=== PATIENT | female | born 1945 | race Caucasian/White ===

== ENCOUNTER 2023-03-26 10:12 | Outpatient (REF) | payer MEDICARE, SELFPAY ==
[2023-03-26 10:56] LABS: MANUAL DIFF FLAG NO
[2023-03-26 11:07] LABS: Basophils Percent Auto 0.3 % (0-2); Eosinophils Absolute Auto 0.1 X10*3/uL (0.0-0.4); Eosinophils Percent Auto 0.9 % (0-4); Hematocrit 37.5 % (37.0-47.0); Hemoglobin 11.9 g/dl (12.0-16.0); Imm Gran Abs Auto 0.01 X10*3/uL (0.00-0.03); Imm Gran Pct Auto 0.1 % (0.0-0.4); Lymphocytes Absolute Auto 2.1 X10*3/uL (1.2-4.9); Lymphocytes Percent Auto 30.5 % (20-40); Mean Corpuscular HGB Conc 31.7 g/dl (31.0-35.0); Mean Corpuscular Hemoglobin 33.2 pg (27.0-33.0); Mean Corpuscular Volume 104.7 fL (80.0-98.0); Mean Platelet Volume 10.9 fL (9.4-12.3); Monocytes Absolute Auto 0.4 X10*3/uL (0.1-1.2); Monocytes Percent Auto 5.6 % (2-11); Neutrophils Absolute Auto 4.2 x10*3/uL (2.0-8.3); Neutrophils Percent Auto 62.6 % (45-73); Platelet Count 608 X10*3/uL (160-400); Red Blood Count 3.58 X10*6/uL (4.20-5.50); Red Cell Distribution Width 14.1 % (11.0-16.0); White Blood Count 6.7 X10*3/uL (4.8-10.8)
[2023-03-26 11:23] LABS: Anion Gap 12 (12-20); Blood Urea Nitrogen 15 mg/dL (9-16); Calcium 10.5 mg/dL (8.4-10.2); Carbon Dioxide 25 mmol/L (22-29); Chloride 108 mmol/L (96-108); Estimated Glomerular Filt Rate > 60; Glucose Random 102 mg/dL (60-115); Potassium 5.2 mmol/L (3.3-5.1); Sodium 140 mmol/L (135-145)
== END 2023-03-26 10:13 | disposition home or self-care (01) ==
LOC: HO.10HDL 10:12
PROVIDERS: Visit Provider Internal Medicine
DX: I10 Essential (primary) hypertension (principal); D75.839 Thrombocytosis, unspecified
CPT/HCPCS: 36415; 80048; 85025

== ENCOUNTER → 2023-07-15 12:33 | Outpatient (REF) | payer MEDICARE, SELFPAY | LOC: HO.CARD 12:33 | PROVIDERS: PCP Internal Medicine; Visit Provider Internal Medicine | DX: Z13.6 Encounter for screening for cardiovascular disorders (principal); I51.7 Cardiomegaly | CPT/HCPCS: 93306; 93356 ==

== ENCOUNTER → 2023-07-15 12:36 | Outpatient (BNV) | payer MEDICARE, SELFPAY | PROVIDERS: PCP Internal Medicine; Visit Provider Internal Medicine Cardiovascular Disease | DX: I36.1 Nonrheumatic tricuspid (valve) insufficiency (principal) | CPT/HCPCS: 93306 ==

== ENCOUNTER 2023-08-11 10:46 | Outpatient (REF) | payer MEDICARE, SELFPAY ==
[2023-08-11 11:17] LABS: MANUAL DIFF FLAG NO
[2023-08-11 11:56] LABS: Basophils Percent Auto 0.2 % (0-2); Eosinophils Percent Auto 0.4 % (0-4); Hematocrit 37.6 % (37.0-47.0); Hemoglobin 12.3 g/dl (12.0-16.0); Imm Gran Abs Auto 0.01 X10*3/uL (0.00-0.03); Imm Gran Pct Auto 0.2 % (0.0-0.4); Lymphocytes Absolute Auto 1.4 X10*3/uL (1.2-4.9); Lymphocytes Percent Auto 26.5 % (20-40); Mean Corpuscular HGB Conc 32.7 g/dl (31.0-35.0); Mean Corpuscular Hemoglobin 33.9 pg (27.0-33.0); Mean Corpuscular Volume 103.6 fL (80.0-98.0); Monocytes Absolute Auto 0.3 X10*3/uL (0.1-1.2); Monocytes Percent Auto 5.5 % (2-11); Neutrophils Absolute Auto 3.6 x10*3/uL (2.0-8.3); Neutrophils Percent Auto 67.2 % (45-73); Platelet Count 547 X10*3/uL (160-400); Red Blood Count 3.63 X10*6/uL (4.20-5.50); Red Cell Distribution Width 14.8 % (11.0-16.0); White Blood Count 5.3 X10*3/uL (4.8-10.8)
[2023-08-11 12:26] LABS: Anion Gap 12 (12-20); Blood Urea Nitrogen 15 mg/dL (9-16); Calcium 10.3 mg/dL (8.4-10.2); Carbon Dioxide 26 mmol/L (22-29); Chloride 106 mmol/L (96-108); Estimated Glomerular Filt Rate > 60; Glucose Random 106 mg/dL (60-115); Sodium 140 mmol/L (135-145)
== END 2023-08-11 10:47 | disposition home or self-care (01) ==
LOC: HO.LAB 10:46
PROVIDERS: PCP Internal Medicine; Visit Provider Internal Medicine
DX: I10 Essential (primary) hypertension (principal); D75.839 Thrombocytosis, unspecified
CPT/HCPCS: 36415; 80048; 85025

== ENCOUNTER 2023-12-03 11:55 | Outpatient (REF) | payer MEDICARE, SELFPAY ==
[2023-12-03 13:10] LABS: MANUAL DIFF FLAG NO
[2023-12-03 13:25] LABS: Basophils Percent Auto 0.2 % (0-2); Eosinophils Percent Auto 0.7 % (0-4); Hematocrit 35.3 % (37.0-47.0); Hemoglobin 11.7 g/dl (12.0-16.0); Imm Gran Abs Auto 0.02 X10*3/uL (0.00-0.03); Imm Gran Pct Auto 0.3 % (0.0-0.4); Lymphocytes Absolute Auto 1.8 X10*3/uL (1.2-4.9); Lymphocytes Percent Auto 30.8 % (20-40); Mean Corpuscular HGB Conc 33.1 g/dl (31.0-35.0); Mean Corpuscular Hemoglobin 34.8 pg (27.0-33.0); Mean Corpuscular Volume 105.1 fL (80.0-98.0); Mean Platelet Volume 10.6 fL (9.4-12.3); Monocytes Absolute Auto 0.5 X10*3/uL (0.1-1.2); Monocytes Percent Auto 7.6 % (2-11); Neutrophils Absolute Auto 3.6 x10*3/uL (2.0-8.3); Neutrophils Percent Auto 60.4 % (45-73); Platelet Count 645 X10*3/uL (160-400); Red Blood Count 3.36 X10*6/uL (4.20-5.50); Red Cell Distribution Width 16.3 % (11.0-16.0)
[2023-12-03 13:42] LABS: Alanine Aminotransferase 16 U/L (0-31); Albumin Level 4.5 g/dL (3.5-5.0); Alkaline Phosphatase 67 U/L (39-117); Anion Gap 13 (12-20); Aspartate Amino Transferase 14 U/L (5-31); Bilirubin Total 0.8 mg/dL (0.0-1.0); Blood Urea Nitrogen 19 mg/dL (9-16); Calcium 10.6 mg/dL (8.4-10.2); Carbon Dioxide 26 mmol/L (22-29); Chloride 106 mmol/L (96-108); Estimated Glomerular Filt Rate > 60; Glucose Random 98 mg/dL (60-115); Potassium 4.5 mmol/L (3.3-5.1); Sodium 140 mmol/L (135-145); Total Protein 7.7 g/dL (6.5-8.0)
[2023-12-03 14:10] LABS: Vitamin B12 226 pg/mL (200-900)
== END 2023-12-03 11:56 | disposition home or self-care (01) ==
LOC: HO.10HDL 11:55
PROVIDERS: Visit Provider Internal Medicine
DX: Z01.818 Encounter for other preprocedural examination (principal); I10 Essential (primary) hypertension; D75.839 Thrombocytosis, unspecified
CPT/HCPCS: 36415; 80053; 82607; 85025

== ENCOUNTER 2024-03-14 10:18 | Outpatient (REF) | payer MEDICARE, SELFPAY ==
[2024-03-14 11:08] LABS: MANUAL DIFF FLAG NO
[2024-03-14 11:26] LABS: Basophils Percent Auto 0.3 % (0-2); Eosinophils Absolute Auto 0.1 X10*3/uL (0.0-0.4); Eosinophils Percent Auto 1.2 % (0-4); Hematocrit 37.8 % (37.0-47.0); Hemoglobin 11.9 g/dl (12.0-16.0); Imm Gran Abs Auto 0.01 X10*3/uL (0.00-0.03); Imm Gran Pct Auto 0.2 % (0.0-0.4); Lymphocytes Absolute Auto 2.3 X10*3/uL (1.2-4.9); Lymphocytes Percent Auto 34.9 % (20-40); Mean Corpuscular HGB Conc 31.5 g/dl (31.0-35.0); Mean Corpuscular Hemoglobin 32.1 pg (27.0-33.0); Mean Corpuscular Volume 101.9 fL (80.0-98.0); Mean Platelet Volume 10.9 fL (9.4-12.3); Monocytes Absolute Auto 0.4 X10*3/uL (0.1-1.2); Monocytes Percent Auto 6.3 % (2-11); Neutrophils Absolute Auto 3.7 x10*3/uL (2.0-8.3); Neutrophils Percent Auto 57.1 % (45-73); Platelet Count 812 X10*3/uL (160-400); Red Blood Count 3.71 X10*6/uL (4.20-5.50); Red Cell Distribution Width 14.6 % (11.0-16.0); White Blood Count 6.5 X10*3/uL (4.8-10.8)
[2024-03-14 11:37] LABS: Alanine Aminotransferase 17 U/L (0-31); Albumin Level 4.3 g/dL (3.5-5.0); Alkaline Phosphatase 66 U/L (39-117); Anion Gap 13 (12-20); Aspartate Amino Transferase 13 U/L (5-31); Bilirubin Total 0.6 mg/dL (0.0-1.0); Blood Urea Nitrogen 17 mg/dL (9-16); Calcium 10.4 mg/dL (8.4-10.2); Carbon Dioxide 26 mmol/L (22-29); Chloride 106 mmol/L (96-108); Cholesterol 188 mg/dL (<200); Estimated Glomerular Filt Rate > 60; Glucose Fasting 107 mg/dL (60-99); HDL Cholesterol 57 mg/dL (>40); LDL Cholesterol Calculated 109 mg/dL (<100); Potassium 4.7 mmol/L (3.3-5.1); Sodium 140 mmol/L (135-145); Total Protein 7.7 g/dL (6.5-8.0); Triglycerides 110 mg/dL (<150)
[2024-03-14 11:56] LABS: Vitamin D 25-OH Total 34.1 ng/mL (>30)
== END 2024-03-14 10:19 | disposition home or self-care (01) ==
LOC: HO.10HDL 10:18
PROVIDERS: Visit Provider Internal Medicine
DX: I10 Essential (primary) hypertension (principal); M19.90 Unspecified osteoarthritis, unspecified site; D75.839 Thrombocytosis, unspecified
CPT/HCPCS: 36415; 80053; 80061; 82306; 85025

== ENCOUNTER 2024-08-22 10:04 | Outpatient (REF) | payer MEDICARE, SELFPAY ==
--- OUTSIDE RECORDS SUMMARY | 2024-08-22 11:12 | XMS_ITS | Clinical Summary ---
Author Organization 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 Phone Clifton Calderon MD Primary Care Provider [phone] Medications hydroxyurea (HYDREA) 500 mg capsule TAKE 1 CAPSULE (500 MG TOTAL) BY MOUTH DAILY 90 capsule 1 07/31/2024 Active Encounters Date Type Department Care Team Description 06/22/2024 Telephone [facility] Hematology Oncology [address] [place] [phone] Sailaja Lynn DO 06/20/2024 Telephone [facility] Hematology Oncology [address] [place] [phone] Sailaja Lynn DO Results from Last 3 Months Surgical History Surgery Date Site/Laterality Comments COLONOSCOPY 02/19/2014 PROCEDURE:COLONOSCOPY PARTIAL HIP ARTHROPLASTY PROCEDURE:PARTIAL HIP ARTHROPLASTY WISDOM TOOTH EXTRACTION PROCEDURE:WISDOM TOOTH EXTRACTION Medical History Medical History Date Comments Dermatitis DX:Dermatitis Eczema DX:Eczema HTN (hypertension) DX:HTN (hyper tension) Thrombocythemia, essential (CMS/HCC) DX:Thrombocythemia, essential (HCC) Thrombocytosis DX:Thrombocytosi s Osteoarthritis DX:Osteoarthriti s HLD (hyperlipidemia) DX:HLD (hyp erlipidemia) Family History Medical History Relation Name Comments Heart attack Father Hypertension Mother Leukemia Mother Relation Name Status Comments Father (Age 85) Mother (Age 80) Social History Tobacco Use Types Packs/Day Years Used Date Smoking Tobacco: Never Smokeless Tobacco: Never Alcohol Use Standard Drinks/Week Comments Yes 7 (1 standard drink = 0.6 oz pur e alcohol) Comments Unknown Sex and Gender Information Value Date Recorded Sex Assigned at Not on file Legal Sex Female 2:01 AM EST Gender Identity Not on file Sexual Orientation Not on file Obstetrics History Last Filed Vital Signs Vital Sign Reading Time Taken Comments Blood Pressure 165/58 04/19/2024 9:02 AM EDT Sitting Right arm Pulse 89 04/19/2024 9:02 AM EDT Temperature - - Respiratory Rate - - Oxygen Saturation - - Inhaled Oxygen Concentration - - Weight 66.1 kg (145 lb 12.8 oz) 04/19/2024 9:02 AM EDT Height 157.5 cm (5' 2 ) 04/19/2024 9:02 AM EDT Body Mass Index 26.67 04/19/2024 9:02 AM EDT Plan of Treatment Upcoming Encounters Date Type Department Care Team (Late st Contact Info) Description 10/18/2024 9:00 AM EDT Office Visit [facility] Hematology Oncology [address] [place] [phone] Sailaja Lynn, DO [address] [place] [address] Health Maintenance Due Date Last Done Comments DTaP,Tdap,and Td Vaccines (1 - Tdap) 1952 Pneumococcal Vaccine: 50+ Years (1 of 2 - PCV) 1963 RSV Immunization Patients 60+ Years Old (1 - 1-dose 75+ series) 2019 Zoster Vaccines (2 of 2) 06/10/2020 04/15/2020 Cholesterol Screening (Lipid Panel) 06/19/2022 Depression Screening 06/19/2022 Falls Risk Assessment 06/19/2022 Osteoporosis Screening (Bone Density Screening) 06/19/2022 Social Influencers of Health Screening 06/19/2022 Medicare Annual Wellness Visit 03/03/2023 03/03/2022 Influenza Vaccine (#1) 2024 3, 05/18/2022, 04/07/2021, Additional history exists Hypertension/CHF/CAD Annual BMP Blood Test 06/12/2025 06/12/2024 COVID-19 Vaccine Completed 03/29/2024, , 05/25/2022, Additional history exists HIB Vaccines Aged Out No longer eligi ble based on patient's age to complete this topic HPV Vaccines Aged Out No longer eligi ble based on patient's age to complete this topic Hepatitis A Vaccines Aged Out No long er eligible based on patient's age to complete this topic Hepatitis B Vaccines Aged Out No long er eligible based on patient's age to complete this topic IPV Vaccines Aged Out No longer eligi ble based on patient's age to complete this topic MMR Vaccines Aged Out No longer eligi ble based on patient's age to complete this topic Meningococcal ACWY Vaccine Aged Out N o longer eligible based on patient's age to complete this topic Meningococcal B Vacine Aged Out No lo nger eligible based on patient's age to complete this topic RSV Immunization Patients Under 20 months Aged Out No longer eligible based on patient's age to complete this topic Varicella Vaccines Aged Out No longer eligible based on patient's age to complete this topic Procedures Procedure Name Priority Date/Time Associated Diagnosis Comments CBC WITH AUTO DIFFERENTIAL Routine 06/12/2024 8:11 AM EST Thrombocythemia, essential (CMS/HCC) CBC AND DIFFERENTIAL Routine 06/12/2024 8:11 AM EST Thrombocythemia, essential (CMS/HCC) COMPREHENSIVE METABOLIC PANEL Routine 06/12/2024 8:11 AM EST Thrombocythemia, essential (CMS/HCC) from Last 3 Months Results * (ABNORMAL) CBC auto differential (06/12/2024 8:11 AM EST) WBC 4.9 4.8 - 10.8 K/mcL LAB HEMETOLOGY METHOD 06/12/2024 11:51 AM EST [facility] RBC 3.30(L) 3.80 - 4.80 M/mcL LAB HEMETOLOGY METHOD 06/12/2024 11:51 AM EST [facility] Hemoglobin 11.1(L) 11.5 - 16.0 g/dL LAB HEMETOLOGY METHOD 06/12/2024 11:51 AM [facility] Hematocrit 35.7 35.0 - 47.0 % LAB HEMETOLOGY METHOD 06/12/2024 11:51 AM [facility] MCV 109.8(H) 79.0 - 98.0 FL LAB HEMETOLOGY METHOD 06/12/2024 11:51 AM [facility] MCH 34.2(H) 27.0 - 32.0 pcg LAB HEMETOLOGY METHOD 06/12/2024 11:51 AM [facility] MCHC 31.1(L) 32.0 - 37.0 g/dL LAB HEMETOLOGY METHOD 06/12/2024 11:51 AM [facility] RDW 17.4(H) 11.0 - 15.0 % LAB HEMETOLOGY METHOD 06/12/2024 11:51 AM [facility] Platelets 534(H) 130 - 400 K/mcL LAB HEMETOLOGY METHOD 06/12/2024 11:51 AM [facility] MPV 10.9 7.0 - 11.0 FL LAB HEMETOLOGY METHOD 06/12/2024 11:51 AM [facility] NRBC 0.0 <1.0 % LAB HEMETOLOGY METHOD 06/12/2024 11:51 AM [facility] NRBC Absolute 0.00 <0.10 K/mcL LAB HEMETOLOGY METHOD 06/12/2024 11:51 AM [facility] Neutrophils Relative 55.1 % LAB HEMETOLOGY METHOD 06/12/2024 11:51 AM [facility] Lymphocytes Relative 36.6 % LAB HEMETOLOGY METHOD 06/12/2024 11:51 AM [facility] Monocytes Relative 6.5 % LAB HEMETOLOGY METHOD 06/12/2024 11:51 AM [facility] Eosinophils Relative 1.2 % LAB HEMETOLOGY METHOD 06/12/2024 11:51 AM EST [facility] Basophils Relative 0.2 % LAB HEMETOLOGY METHOD 06/12/2024 11:51 AM [facility] Immature Granulocytes Relative 0.4 % LAB HEMETOLOGY METHOD 06/12/2024 11:51 AM [facility] Neutrophils Absolute 2.69 1.50 - 7.00 K/mcL LAB HEMETOLOGY METHOD 06/12/2024 11:51 AM EST [facility] Lymphocytes Absolute 1.79 1.00 - 5.00 K/mcL LAB HEMETOLOGY METHOD 06/12/2024 11:51 AM [facility] Monocytes Absolute 0.32 0.20 - 1.00 K/mcL LAB HEMETOLOGY METHOD 06/12/2024 11:51 AM [facility] Eosinophils Absolute 0.06 0.00 - 0.50 K/mcL LAB HEMETOLOGY METHOD 06/12/2024 11:51 AM EST [facility] Basophils Absolute 0.01 0.00 - 0.20 K/mcL LAB HEMETOLOGY METHOD 06/12/2024 11:51 AM [facility] Immature Granulocytes Absolute 0.02 0.00 - 0.03 K/mcL LAB HEMETOLOGY METHOD 06/12/2024 11:51 AM EST [facility] Blood Venous blood specimen / Unknown Venipuncture / Unknown 06/12/2024 8:11 AM EST 06/12/2024 11:25 AM EST us Sailaja Lynn DO LAB BLOOD ORDERABLES Final Result [facility] [address] [place] [address], * Comprehensive metabolic panel (06/12/2024 8:11 AM EST) Sodium 141 133 - 145 mmol/L LAB CHEMISTRY METHOD 06/12/2024 11:58 AM [facility] Potassium 4.7 3.5 - 5.5 mmol/L LAB CHEMISTRY METHOD 06/12/2024 11:58 AM [facility] Chloride 110 96 - 110 mmol/L LAB CHEMISTRY METHOD 06/12/2024 11:58 AM [facility] CO2 27 21 - 32 mmol/L LAB CHEMISTRY METHOD 06/12/2024 11:58 AM [facility] Anion Gap 4 3 - 11 LAB CHEMISTRY METHOD 06/12/2024 11:58 AM [facility] Glucose 100 70 - 100 mg/dL LAB CHEMISTRY METHOD 06/12/2024 11:58 AM [facility] BUN 17 5 - 25 mg/dL LAB CHEMISTRY METHOD 06/12/2024 11:58 AM [facility] Creatinine 0.82 0.50 - 1.10 mg/dL LAB CHEMISTRY METHOD 06/12/2024 11:58 AM [facility] eGFR 72 >=60 mL/min/1. 73m2 LAB CHEMISTRY METHOD 06/12/2024 11:58 AM [facility] Comment:Calculation based on the??Chronic Kidney Disease Epidemiology Collaboration (CKD-EPI) equation refit??without adjustment for race. BUN/Creatinine Ratio 20.7 LAB CHEMISTRY METHOD 06/12/2024 11:58 AM [facility] Calcium 10.1 8.5 - 10.5 mg/dL LAB CHEMISTRY METHOD 06/12/2024 11:58 AM [facility] AST (SGOT) 14 10 - 42 unit/L LAB CHEMISTRY METHOD 06/12/2024 11:58 AM [facility] ALT (SGPT) 17 10 - 60 unit/L LAB CHEMISTRY METHOD 06/12/2024 11:58 AM [facility] Alkaline Phosphatase 75 42 - 121 unit/L LAB CHEMISTRY METHOD 06/12/2024 11:58 AM EST [facility] Total Protein 6.9 6.0 - 8.0 g/dL LAB CHEMISTRY METHOD 06/12/2024 11:58 AM EST [facility] Albumin 3.9 3.2 - 5.0 g/dL LAB CHEMISTRY METHOD 06/12/2024 11:58 AM EST [facility] Total Bilirubin 0.6 0.0 - 1.4 mg/dL LAB CHEMISTRY METHOD 06/12/2024 11:58 AM EST [facility] Blood Venous blood specimen / Unknown Venipuncture / Unknown 06/12/2024 8:11 AM EST 06/12/2024 11:26 AM EST us Sailaja Lynn DO LAB BLOOD ORDERABLES Final Result [facility] [address] [place] [address], from Last 3 Months Insurance MEDICARE 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
--- OUTSIDE RECORDS SUMMARY | 2024-08-22 11:13 | XMS_ITS | Clinical Summary ---
Author Organization [facility] Address [address] [place] [address] Care Team Providers Care Gas Welder Name Role Phone Dwight Bowser MD Primary Care Provider [phone] Allergies No known active allergies Medications Medication Sig Dispensed Refills Start Date End Date Status amLODIPine (NORVASC) tablet 10 mg Take 1 tablet (10 mg total) by mouth daily. 0 Active valsartan (DIOVAN) tablet 80 mg Take 1 tablet (80 mg total) by mouth daily. 0 Active vitamin D3 (VITAMIN D3) 25 MCG (1000 UT) tablet Take 1 tablet (1,000 Units total) by mouth daily. 0 Active aspirin EC 81 MG tablet Take 1 tablet (81 mg total) by mouth daily. 0 Active hydroxyurea (HYDREA) 500 MG capsule Take 1 capsule (500 mg total) by mouth daily 90 capsule 1 04/28/2024 Active Active Problems Problem Noted Date Diagnosed Date Thrombocythemia, essential 02/20/2020 Overview: The patient was evaluated by Dr. Strickland in March 2019 for platelet count of 608,000 with normal white count and hemoglobin. She did not have symptoms of hyperviscosity or splenomegaly on exam. 81 mg daily aspirin was recommended with follow-up in 6 months with molecular testing. Testing for Surya [id number] and BCR-ABL had both been reported negative when she saw Dr. Dillard in September 2019 with platelet count 765,000. No change in treatment was instituted. Thrombocytosis 11/21/2019 HTN (hypertension) 11/21/2019 Resolved Problems Problem Noted Date Diagnosed Date Resolved Date Encounter for monitoring of hydroxyurea therapy 10/20/2023 10/20/2023 Family History Medical History Relation Name Comments Heart attack Father Hypertension Mother Leukemia Mother Relation Name Status Comments Father (Age 85) Mother (Age 80) Social History Tobacco Use Types Packs/Day Years Used Date Smoking Tobacco: Never Smokeless Tobacco: Never Alcohol Use Standard Drinks/Week Comments Yes 7 (1 standard drink = 0.6 oz pure alcohol) daily glass of wine with dinner Sex and Gender Information Value Date Recorded Sex Assigned at Not on file Gender Identity Not on file Sexual Orientation Not on file Job Start Date Occupation Industry Not on file Not on file Not on file Last Filed Vital Signs Vital Sign Reading Time Taken Comments Blood Pressure 165/58 04/19/2024 9:02 AM EDT Pulse 89 04/19/2024 9:02 AM EDT Temperature 36.7 ??C (98 ??F) 04/19/2024 9:02 AM EDT Respiratory Rate - - Oxygen Saturation 99% 04/19/2024 9:02 AM EDT Inhaled Oxygen Concentration - - Weight 66.1 kg (145 lb 12.8 oz) 04/19/2024 9:02 AM EDT Height 157.5 cm (5' 2 ) 04/19/2024 9:02 AM EDT Body Mass Index 26.67 04/19/2024 9:02 AM EDT Plan of Treatment Health Maintenance Due Date Last Done Comments COVID-19 Vaccine (#1) 1950 Pneumococcal Vaccine (1 of 2 - PCV) 1950 Depression Screening 1956 Preventative Health Evaluation 1962 DTap / Tdap / Td (1 - Tdap) 1963 Shingrix-Zoster Vaccine (1 of 2) 1963 Fall Risk Assessment 2009 Osteoporosis Screening (DEXA Scan) 2009 RSV Adult > 60+ Yrs or Pregn ant (1 - 1-dose 75+ series) 2019 Influenza Vaccine (#1) 2024 Hepatitis B Vaccines Aged Out No long er eligible based on patient's age to complete this topic RSV Ped < 20 months Aged Out No longe r eligible based on patient's age to complete this topic Care Teams Gas Welder Relationship Specialty Start Date End Date Dwight Bowser MD [address] [place] [address] Dr [address] JUAN Hernandez [address] PCP - General Bird Raiser 10/28/22
[2024-08-22 11:26] LABS: MANUAL DIFF FLAG NO
[2024-08-22 11:33] LABS: Eosinophils Percent Auto 0.5 % (0-4); Hematocrit 33.9 % (37.0-47.0); Imm Gran Abs Auto 0.01 X10*3/uL (0.00-0.03); Imm Gran Pct Auto 0.3 % (0.0-0.4); Lymphocytes Absolute Auto 1.4 X10*3/uL (1.2-4.9); Lymphocytes Percent Auto 36.6 % (20-40); Mean Corpuscular HGB Conc 32.4 g/dl (31.0-35.0); Mean Corpuscular Hemoglobin 34.4 pg (27.0-33.0); Mean Corpuscular Volume 105.9 fL (80.0-98.0); Mean Platelet Volume 10.8 fL (9.4-12.3); Monocytes Absolute Auto 0.2 X10*3/uL (0.1-1.2); Monocytes Percent Auto 4.3 % (2-11); Neutrophils Absolute Auto 2.3 x10*3/uL (2.0-8.3); Neutrophils Percent Auto 58.3 % (45-73); Platelet Count 446 X10*3/uL (160-400); White Blood Count 3.9 X10*3/uL (4.8-10.8)
[2024-08-22 11:58] LABS: Alanine Aminotransferase 18 U/L (0-31); Albumin Level 4.3 g/dL (3.5-5.0); Alkaline Phosphatase 67 U/L (39-117); Anion Gap 9 (12-20); Aspartate Amino Transferase 19 U/L (5-31); Bilirubin Total 0.7 mg/dL (0.0-1.0); Blood Urea Nitrogen 19 mg/dL (9-16); Calcium 9.6 mg/dL (8.4-10.2); Carbon Dioxide 26 mmol/L (22-29); Chloride 108 mmol/L (96-108); Cholesterol 182 mg/dL (<200); Estimated Glomerular Filt Rate > 60; Glucose Fasting 96 mg/dL (60-99); HDL Cholesterol 51 mg/dL (>40); LDL Cholesterol Calculated 106 mg/dL (<100); Potassium 4.3 mmol/L (3.3-5.1); Sodium 139 mmol/L (135-145); Total Protein 7.5 g/dL (6.5-8.0); Triglycerides 125 mg/dL (<150); Vitamin D 25-OH Total 36.1 ng/mL (>30)
== END 2024-08-22 10:05 | disposition home or self-care (01) ==
LOC: HO.10HDL 10:04
PROVIDERS: Visit Provider Internal Medicine
DX: I10 Essential (primary) hypertension (principal); M81.0 Age-related osteoporosis without current pathological fracture; D75.839 Thrombocytosis, unspecified
CPT/HCPCS: 36415; 80053; 80061; 82306; 85025

== ENCOUNTER 2024-12-25 10:13 | Outpatient (AMB) | payer MEDICARE, SELFPAY ==
--- NOTE | 2024-12-25 10:15 | A.OFFPC_ITS ---
Vital Signs 12/25/24 10:19 12/25/24 10:40 Height 5 ft 2 in Weight 67.585 kg BMI 27.2 BP 160/94 H 140/70 H Pulse 97 Pulse Source Pulse Oximeter Temp 97.5 F Temp Source Temporal Artery Scan Pulse Oximetry (%) 98 Oxygen Delivery Method Room Air Intake Visit Reasons: Routine Bearing Grinder Required: No Accompanied by: Self / Same As Patient Allergies No Known Allergies Allergy (Verified 12/25/24 10:18) Medication List - Last Reconciled 12/25/24 by MAGNO Bear amlodipine 10 mg PO DAILY aspirin 81 mg PO DAILY cholecalciferol (vitamin D3) 50 mcg PO DAILY hydroxyurea PO valsartan 80 mg PO DAILY HPI HPI Comments History of Present Illness Details 79-year-old female with history of hyper tension, osteopenia, thrombocytosis presents to the office today for management of chronic conditions as well as to establish care. Hypertension-previously well-controlled. Initial blood pressure 160/94, repeat 140/70. Feels this is related to new office in provider. Compliant with valsartan 80 mg daily and amlodipine 10 mg daily. Thrombocytosis-following with Dr. Regan at [place]. On hydroxyurea. Last platelet count 446 Osteopenia-last DEXA scan 03/2024 with FRAX 16%. On vitamin-D Concerns: There is an itchy new rash on the upper chest. It is scaly. Reports it occasionally flares up and then improves. There is pruritus, worse at night. No pain or drainage [facility] Health maintenance: Continues with annual mammograms. Last mammo 03/2024 at [facility]. No personal history of breast cancer or abnormal mammogram but does desire to continue with scans Last DEXA scan 03/2024 at [facility] ROS: General: No fevers, malaise, unintentional weight loss Cardiovascular: No chest pain, palpitations, or leg edema Respiratory: No shortness of breath, wheezing, cough Neuro: No headaches, weakness, paresthesias Skin: see hpi EXAM: Constitutional - Awake and Alert, No apparent distress Eyes - PERRL Cardiovascular - S1S2, RRR, No edema Respiratory - Normal lung expansion, Normal respiratory effort, No respiratory distress, CTA bilaterally Extremities - no calf tenderness bilaterally, no swelling Skin - Warm/Dry. Mildly erythematous papular scaling rash on the mid upper chest Neurological - Alert & oriented x3 Psychological - Appropriate affect PFSH Medical History (Updated 12/25/24 @ 10:50 by MAGNO Bear) Thrombocytosis Vitamin D deficiency Osteopenia Hypertension Surgical History (Updated 12/25/24 @ 10:26 by MAGNO Bear) Status post total hip replacement, right S/P cataract surgery Questionnaire PHQ-9 Over the last 2 weeks, how often have you been bothered by any of the following problems? 1. Little interest or pleasure in doing things: not at all 2. Feeling down, depressed, or hopeless: not at all 3. Trouble falling or staying asleep, or sleeping too much: several days 4. Feeling tired or having little energy: several days 5. Poor appetite or overeating: not at all 6. Feeling bad about yourself - or that you are a failure or have let yourself or your family down: not at all 7. Trouble concentrating on things, such as reading the newspaper or watching television: not at all 8. Moving or speaking so slowly that other people could have noticed. Or the opposite - being so fidgety or restless that you have been moving around a lot more than usual: not at all 9. Thoughts that you would be better off or of hurting yourself in some way: not at all Total score: 2 Source: Developed by Drs. Toribio Marti, Kortney Oglesby, Julio Cesar Mcdonald and colleagues, with an educational mary from [employer]. Thrive Questionnaire Date Thrive assessed: 12/25/24 I am a: Patient What is your living situation today?: I have a steady place to live Within the past 12 months, did the food you bought not last and you didn't have the money to get more?: Never true Within the past 12 months, did you worry whether your food would run out before you got money to buy more?: Never true Do you have trouble paying for medicines?: No Do you have trouble getting transportation to medical appointments?: No Do you have trouble paying your heating and electricity bill?: No Do you have trouble taking care of your child, family member or friend?: No Do you have trouble with day-to-day activities such as bathing, preparing meals, shopping, managing finances, etc.?: No Are you currently unemployed and looking for a job?: No Are you interested in more education?: No Please select the resources that you would like help with: None THRIVE Score: 0 LALIT-7 AMB Questionnaire LALIT-7 Date LALIT - 7 assessed: 12/25/24 Feeling nervous, anxious, or on edge: 0 = Not at all Not being able to stop or control worryin = Not at all Worrying too much about different things: 0 = Not at all Trouble relaxin = Not at all Being so restless that it is hard to sit still: 0 = Not at all Becoming easily annoyed or irritable: 0 = Not at all Feeling afraid as if something awful might happen: 0 = Not at all Total LALIT-7 score (0-4 normal; 5-9 mild; 10-14 moderate; 15-21 severe): 0 Source: Developed by Drs. Toribio Marti, Kortney Oglesby, Julio Cesar Mcdonald and colleagues, with an educational mary from [employer]. Physical exam (Primary Care) Vital Signs: Last Vital Signs Temp 97.5 F 12/25/24 10:19 Pulse 97 12/25/24 10:19 BP 140/70 H 12/25/24 10:40 Pulse Ox 98 12/25/24 10:19 Oxygen Delivery Method Room Air 12/25/24 10:19 BMI result Body Mass Index 27.2 Coding Level of Care Code New Pt Level 4 (35729) Complex EM visit Add On G2211 Diagnoses Hypertension I10 Osteopenia M85.80 Vitamin D deficiency E55.9 Thrombocytosis D75.839 Tinea versicolor B36.0 Assessment & Plan Assessment & Plan (1) Hypertension: Code(s): I10 - Essential (primary) hypertension Category: Medical Plan: 140/70. She is not interested in medication changes at this time. Blood pressures have previously been well-controlled, feels this is related to new office/staff. Continue on amlodipine 10 mg daily and valsartan 80 mg daily. Recommend occasionally check her blood pressures with goal less than 140/90 (2) Osteopenia: Code(s): M85.80 - Other specified disorders of bone density and structure, unspecified site Category: Medical Plan: FRAX 16%. Continue following for DEXA scans every other year. Continue on vitamin-D. Recommend weight-bearing exercise. (3) Vitamin D deficiency: Code(s): E55.9 - Vitamin D deficiency, unspecified Category: Medical Plan: Vitamin-D level ordered. Continue supplementation (4) Thrombocytosis: Code(s): D75.839 - Thrombocytosis, unspecified Category: Medical Plan: Stable. Continue hydroxyurea. Continue following with [id number]. Records to be requested (5) Tinea versicolor: Code(s): B36.0 - Pityriasis versicolor Category: Medical Plan: Ketoconazole shampoo Plan Follow-up in the office in 4 months. Labs to be completed several days prior to visit. Orders: Orders Basic Metabolic Panel 4 Months D7.839 - Thrombocytosis, unspecified, E55.9 - Vitamin D deficiency, unspecified, I10 - Essential (primary) hypertension, M85.80 - Other specified disorders of bone density and structure, unspecified site Complete Blood Count Auto Diff 4 Months D75.839 - Thrombocytosis, unspecified, E55.9 - Vitamin D deficiency, unspecified, I10 - Essential (primary) hypertension, M85.80 - Other specified disorders of bone density and structure, unspecified site Vitamin D 25-OH Total 4 Months D75.839 - Thrombocytosis, unspecified, E55.9 - Vitamin D deficiency, unspecified, I10 - Essential (primary) hypertension, M85.80 - Other specified disorders of bone density and structure, unspecified site MM tomosynthesis screening BI Today Z12.31 - Encounter for screening mammogram for malignant neoplasm of breast Medications: New ketoconazole 2% Apply to damp chest, lather, and leave on 5 minutes before rinsing. Repeat daily x 3 days. May repeat in 2 weeks if needed; 120 mL 0RF
[2024-12-25 10:19] VITALS: BP 160/94; PULSE 97; TEMP 36.4; O2SAT 98; BMI 27.2
[2024-12-25 10:40] VITALS: BP 140/70
--- OUTSIDE RECORDS SUMMARY | 2024-12-25 11:22 | XMS_ITS | Clinical Summary ---
Author Organization [facility] Address [address] [place] [address] Phone Care Team Providers Care Web User Experience Strategist Name Role Phone Clifton Calderon MD Primary Care Provider +1- [phone] Allergies No known active allergies Medications amLODIPine (NORVASC) 10 mg tablet Take 1 tablet (10 mg total) by mouth 1 (one) time each day. Active aspirin 81 mg EC tablet Take 1 tablet (81 mg total) by mouth 1 (one) time each day. Active cholecalciferol (VITAMIN D-3) 25 mcg (1,000 unit) tablet Take 1 tablet (1,000 Units total) by mouth. Active valsartan (DIOVAN) 80 mg tablet Take 1 tablet (80 mg total) by mouth 1 (one) time each day. Active hydroxyurea (HYDREA) 500 mg capsule Take two tablets by mouth twice a week and one tablet the remainder of the days. Take at the same time each day. 108 capsule Active Active Problems Problem Noted Date Diagnosed Date Essential thrombocytosis (CMS/HCC V24, CMS/HCC V 28) 10/18/2024 Encounters Date Type Department Care Team Description 10/30/2024 Telephone [facility] Hematology Oncology [address] [place] [phone] Sailaja Lynn DO 10/18/2024 9:40 AM EDT Lab Draw Station - [address] [address] Essential thrombocytosis (CMS/HCC V24, [facility] V28) 10/18/2024 9:00 AM EDT Office Visit [facility] Hematology Oncology [address] [place] [address] Sailaja Lynn DO Essential thrombocytosis ([facility] V24, [facility] V28) (Primary Dx) from Last 3 Months Surgical History Surgery Date Site/Laterality Comments COLONOSCOPY 02/19/2014 PROCEDURE:COLONOSCOPY PARTIAL HIP ARTHROPLASTY PROCEDURE:PARTIAL HIP ARTHROPLASTY WISDOM TOOTH EXTRACTION PROCEDURE:WISDOM TOOTH EXTRACTION Medical History Medical History Date Comments Dermatitis DX:Dermatitis Eczema DX:Eczema HTN (hypertension) DX:HTN (hyper tension) Thrombocythemia, essential ( [facility] V24, [facility] V28) DX:Thrombocythemia, essentia l (HCC) Thrombocytosis DX:Thrombocytosi s Osteoarthritis DX:Osteoarthriti s [...] Sign Reading Time Taken Comments Blood Pressure 155/55 10/18/2024 9:03 AM EDT Pulse 97 10/18/2024 9:03 AM EDT Temperature 36.7 ??C (98 ??F) 10/18/2024 9:03 AM EDT Respiratory Rate - - Oxygen Saturation 100% 10/18/2024 9:03 AM EDT Inhaled Oxygen Concentration - - Weight 66.7 kg (147 lb) 10/18/2024 9:03 AM EDT Height 157.5 cm (5' 2 ) 10/18/2024 9:03 AM EDT Body Mass Index 26.89 10/18/2024 9:03 AM EDT Plan of Treatment Upcoming Encounters Date Type Department Care Team (Late st Contact Info) Description 04/18/2025 9:00 AM EDT Office Visit [facility] Hematology Oncology [address] [place] [phone] Sailaja Lynn DO [address] [place] [address] Health Maintenance Due Date Last Done Comments DTaP,Tdap,and Td Vaccines (1 - Tdap) 1964 Pneumococcal Vaccine: 50+ Years (1 of 2 - PCV) 1964 RSV Immunization Adult Patients (1 - 1-dose 75+ series) 2019 Zoster Vaccines (2 of 2) 06/10/2020 04/15/2020 Cholesterol Screening (Lipid Panel) 06/19/2022 Depression Screening 06/19/2022 Falls Risk Assessment 06/19/2022 Osteoporosis Screening (Bone Density Screening) 06/19/2022 Social Influencers of Health Screening 06/19/2022 Medicare Annual Wellness Visit 03/03/2023 03/03/2022 COVID-19 Vaccine (8 - Pfizer risk 2023- season) 2024 03/29/2024, 07/09/2023, 05/25/2022, Additional history exists Influenza Vaccine (Season Ended) 2025 03/26/2023, 05/18/2022, 04/07/2021, Additional history exists Hypertension/CHF/CAD Annual BMP Blood Test 10/18/2025 10/18/2024, 09/01/2024, 06/12/2024 HIB Vaccines Aged Out No longer eligi [...] age to complete this topic Meningococcal B Vaccine Aged Out No l onger eligible based on patient's age to complete this topic RSV Immunization Patients Under 20 months Aged Out No longer eligible based on patient's age to complete this topic Varicella Vaccines Aged Out No longer eligible based on patient's age to complete this topic Procedures Procedure Name Priority Date/Time Associated Diagnosis Comments CBC WITH AUTO DIFFERENTIAL Routine 10/18/2024 9:37 AM EDT Essential thrombocytosis ([facility] V24, [facility] V28) COMPREHENSIVE METABOLIC PANEL Routine 10/18/2024 9:37 AM EDT Essential thrombocytosis ([facility] V24, [facility] V28) CBC AND DIFFERENTIAL Routine 10/18/2024 9:37 AM EDT Essential thrombocytosis ([facility] V24, [facility] V28) from Last 3 Months Results * (ABNORMAL) CBC auto differential (10/18/2024 9:37 AM EDT) WBC 5.6 4.8 - 10.8 K/mcL LAB HEMETOLOGY METHOD 10/18/2024 12:03 PM [facility] RBC 3.10(L) 3.80 - 4.80 M/mcL LAB HEMETOLOGY METHOD 10/18/2024 12:03 PM [facility] Hemoglobin 11.4(L) 11.5 - 16.0 g/dL LAB HEMETOLOGY METHOD 10/18/2024 12:03 PM [facility] Hematocrit 36.1 35.0 - 47.0 % LAB HEMETOLOGY METHOD 10/18/2024 12:03 PM [facility] MCV 115.0(H) 79.0 - 98.0 FL LAB HEMETOLOGY METHOD 10/18/2024 12:03 PM [facility] MCH 36.3(H) 27.0 - 32.0 pcg LAB HEMETOLOGY METHOD 10/18/2024 12:03 PM [facility] MCHC 31.6(L) 32.0 - 37.0 g/dL LAB HEMETOLOGY METHOD 10/18/2024 12:03 PM [facility] RDW 16.1(H) 11.0 - 15.0 % LAB HEMETOLOGY METHOD 10/18/2024 12:03 PM [facility] Platelets 584(H) 130 - 400 K/mcL LAB HEMETOLOGY METHOD 10/18/2024 12:03 PM [facility] MPV 11.3(H) 7.0 - 11.0 FL LAB HEMETOLOGY METHOD 10/18/2024 12:03 PM [facility] NRBC 0.0 <1.0 % LAB HEMETOLOGY METHOD 10/18/2024 12:03 PM [facility] NRBC Absolute 0.00 <0.10 K/mcL LAB HEMETOLOGY METHOD 10/18/2024 12:03 PM [facility] Neutrophils Relative 59.3 % LAB HEMETOLOGY METHOD 10/18/2024 12:03 PM [facility] Lymphocytes Relative 34.9 % LAB HEMETOLOGY METHOD 10/18/2024 12:03 PM [facility] Monocytes Relative 4.5 % LAB HEMETOLOGY METHOD 10/18/2024 12:03 PM [facility] Eosinophils Relative 0.7 % LAB HEMETOLOGY METHOD 10/18/2024 12:03 PM [facility] Basophils Relative 0.2 % LAB HEMETOLOGY METHOD 10/18/2024 12:03 PM [facility] Immature Granulocytes Relative 0.4 % LAB HEMETOLOGY METHOD 10/18/2024 12:03 PM [facility] Neutrophils Absolute 3.33 1.50 - 7.00 K/mcL LAB HEMETOLOGY METHOD 10/18/2024 12:03 PM [facility] Lymphocytes Absolute 1.96 1.00 - 5.00 K/mcL LAB HEMETOLOGY METHOD 10/18/2024 12:03 PM EDT [facility] Monocytes Absolute 0.25 0.20 - 1.00 K/[facility] LAB HEMETOLOGY METHOD 10/18/2024 12:03 PM EDT [facility] Eosinophils Absolute 0.04 0.00 - 0.50 K/[facility] LAB HEMETOLOGY METHOD 10/18/2024 12:03 PM EDT [facility] Basophils Absolute 0.01 0.00 - 0.20 K/[facility] LAB HEMETOLOGY METHOD 10/18/2024 12:03 PM EDT [facility] Immature Granulocytes Absolute 0.02 0.00 - 0.03 K/[facility] LAB HEMETOLOGY METHOD 10/18/2024 12:03 PM [facility] Blood Venous blood specimen / Unknown Venipuncture / Unknown 10/18/2024 9:37 AM EDT 10/18/2024 11:31 AM EDT us Sailaja Lynn DO LAB BLOOD ORDERABLES Final Result [facility] [address] [place] [address], * (ABNORMAL) Comprehensive metabolic panel (10/18/2024 9:37 AM EDT) Sodium 136 133 - 145 mmol/L LAB CHEMISTRY METHOD 10/18/2024 12:22 PM EDT [facility] Potassium 4.4 3.5 - 5.5 mmol/L LAB CHEMISTRY METHOD 10/18/2024 12:22 PM [facility] Chloride 106 96 - 110 mmol/L LAB CHEMISTRY METHOD 10/18/2024 12:22 PM [facility] CO2 27 21 - 32 mmol/L LAB CHEMISTRY METHOD 10/18/2024 12:22 PM [facility] Anion Gap 3 3 - 11 LAB CHEMISTRY METHOD 10/18/2024 12:22 PM [facility] Glucose 107(H) 70 - 100 mg/dL LAB CHEMISTRY METHOD 10/18/2024 12:22 PM [facility] BUN 22 5 - 25 mg/dL LAB CHEMISTRY METHOD 10/18/2024 12:22 PM [facility] Creatinine 0.88 0.50 - 1.10 mg/dL LAB CHEMISTRY METHOD 10/18/2024 12:22 PM [facility] eGFR 67 >=60 mL/min/1. 73m2 LAB CHEMISTRY METHOD 10/18/2024 12:22 PM [facility] Comment:Calculation based on the??Chronic Kidney Disease Epidemiology Collaboration (CKD-EPI) equation refit??without adjustment for race. BUN/Creatinine Ratio 25.0 LAB CHEMISTRY METHOD 10/18/2024 12:22 PM [facility] Calcium 10.4 8.5 - 10.5 mg/dL LAB CHEMISTRY METHOD 10/18/2024 12:22 PM [facility] AST (SGOT) 9(L) 10 - 42 unit/L LAB CHEMISTRY METHOD 10/18/2024 12:22 [facility] ALT (SGPT) 21 10 - 60 unit/L LAB CHEMISTRY METHOD 10/18/2024 12:22 PM [facility] Alkaline Phosphatase 75 42 - 121 unit/L LAB CHEMISTRY METHOD 10/18/2024 12:22 PM [facility] Total Protein 7.6 6.0 - 8.0 g/dL LAB CHEMISTRY METHOD 10/18/2024 12:22 PM [facility] Albumin 4.2 3.2 - 5.0 g/dL LAB CHEMISTRY METHOD 10/18/2024 12:22 PM [facility] Total Bilirubin 0.6 0.0 - 1.4 mg/dL LAB CHEMISTRY METHOD 10/18/2024 12:22 PM EDT [facility] Blood Venous blood specimen / Unknown Venipuncture / Unknown 10/18/2024 9:37 AM EDT 10/18/2024 11:31 AM EDT us Sailaja Judith Lynn DO LAB BLOOD ORDERABLES Final Result [facility] ([facility]) [facility] [address] [place] [address], [place] [phone] from Last 3 Months Insurance MEDICARE [facility] Care Teams Web User Experience Strategist Relationship Specialty Start Date End Date Clifton Calderon MD [address] [facility] [address] [place] [address] PCP - General Internal Medicine 05/08/24
== END 2024-12-25 10:40 | disposition home or self-care (01) ==
LOC: HO.HMCHD 10:13
PROVIDERS: PCP Internal Medicine; Visit Provider Physician Assistant
DX: I10 Essential (primary) hypertension (principal); M85.80 Other specified disorders of bone density and structure, unspecified site; E55.9 Vitamin D deficiency, unspecified; D75.839 Thrombocytosis, unspecified; B36.0 Pityriasis versicolor

== ENCOUNTER → 2024-12-25 10:13 | Outpatient (BNVA) | payer MEDICARE, SELFPAY | PROVIDERS: PCP Internal Medicine; Visit Provider Physician Assistant | DX: I10 Essential (primary) hypertension (principal); M85.80 Other specified disorders of bone density and structure, unspecified site; E55.9 Vitamin D deficiency, unspecified; D75.839 Thrombocytosis, unspecified; B36.0 Pityriasis versicolor; Z79.899 Other long term (current) drug therapy | CPT/HCPCS: 96127; 99202 ==

== ENCOUNTER 2025-04-27 10:50 | Outpatient (REF) | payer MEDICARE, SELFPAY ==
[2025-04-27 13:15] LABS: MANUAL DIFF FLAG NO
--- OUTSIDE RECORDS SUMMARY | 2025-04-27 13:24 | XMS_ITS | Clinical Summary ---
Author Organization [facility] Address [address] [place] [address] Phone Care Team Providers Care Police Captain Name Role Phone Clifton Calderon MD Primary Care Provider +1- [phone] Allergies No known active allergies Medications amLODIPine [...] Encounters Date Type Department Care Team Description 04/18/2025 Telephone [facility] Hematology Oncology [address] [place] [phone] Sailaja Lynn DO 02/02/2025 Telephone [facility] Hematology Oncology [address] [place] [phone] Sailaja Lynn DO from Last 3 Months Surgical History Surgery Date Site/Laterality Comments COLONOSCOPY 02/19/2014 PROCEDURE:COLONOSCOPY PARTIAL HIP ARTHROPLASTY PROCEDURE:PARTIAL HIP ARTHROPLASTY WISDOM TOOTH EXTRACTION PROCEDURE:WISDOM TOOTH EXTRACTION Medical History Medical History Date Comments Dermatitis DX:Dermatitis Eczema DX:Eczema HTN (hypertension) DX:HTN (hyper tension) Thrombocythemia, essential ( [facility] V24, [facility] V28) DX:Thrombocythemia, essentia l (HCC) Thrombocytosis DX:Thrombocytosi [...] 97 10/18/2024 9:03 AM EDT Temperature 36.7 C (98 F) 10/18/2024 9:03 AM EDT Respiratory Rate - - Oxygen Saturation 100% 10/18/2024 9:03 AM EDT Inhaled Oxygen Concentration - - Weight 66.7 kg (147 lb) 10/18/2024 9:03 AM EDT Height 157.5 cm (5' 2 ) 10/18/2024 9:03 AM EDT Body Mass Index 26.89 10/18/2024 9:03 AM EDT Plan of Treatment Upcoming Encounters Date Type Department Care Team (Late st Contact Info) Description 05/09/2025 9:15 AM EDT Office Visit [facility] Hematology Oncology [address] [place] [phone] Sailaja Lynn DO [address] [place] [address] Health Maintenance Due Date Last Done Comments DTaP,Tdap,and Td Vaccines (1 - Tdap) 1964 Pneumococcal Vaccine: 50+ Years (1 of 1 - PCV) 1994 RSV Immunization Adult Patients (1 - 1-dose 75+ series) 2019 Zoster Vaccines (2 of 2) 06/10/2020 04/15/2020 Cholesterol Screening (Lipid Panel) 06/19/2022 Falls Risk Assessment 06/19/2022 Medicare Annual Wellness Visit 06/19/2022 Osteoporosis Screening (Bone Density Screening) 06/19/2022 Social Influencers of Health Screening 06/19/2022 Depression Screening 07/12/2024 COVID-19 Vaccine (8 - Pfizer risk season) 2025 03/29/2024, 07/09/2023, 05/25/2022, Additional history exists Influenza Vaccine (#1) 2025 , 05/18/2022, 04/07/2021, Additional history exists Hypertension/CHF/CAD Annual BMP Blood Test 04/13/2026 04/13/2025, 01/16/2025, 10/18/2024, Additional history exists HIB Vaccines Aged Out [...] Diagnosis Comments CBC WITH AUTO DIFFERENTIAL Routine 04/13/2025 8:30 AM EDT Essential thrombocytosis ([facility]/HCC V24, [facility] V28) COMPREHENSIVE METABOLIC PANEL Routine 04/13/2025 8:30 AM EDT Essential thrombocytosis ([facility]/HCC V24, CMS/HCC V28) CBC AND DIFFERENTIAL Routine 04/13/2025 8:30 AM EDT Essential thrombocytosis ([facility]/HCC V24, CMS/HCC V28) from Last 3 Months Results * (ABNORMAL) CBC auto differential (04/13/2025 8:30 AM EDT) [facility] WBC 5.0 4.8 - 10.8 K/mcL LAB HEMETOLOGY METHOD 04/13/2025 11:[address] [facility] RBC 3.10(L) 3.80 - 4.80 M/mcL LAB HEMETOLOGY METHOD 04/13/2025 11:[address] [facility] Hemoglobin 10.6(L) 11.5 - 16.0 g/dL LAB HEMETOLOGY METHOD 04/13/2025 11:[address] [facility] Hematocrit 34.9(L) 35.0 - 47.0 % LAB HEMETOLOGY METHOD 04/13/2025 11:[address] [facility] MCV 112.2(H) 79.0 - 98.0 FL LAB HEMETOLOGY METHOD 04/13/2025 11:[address] [facility] MCH 34.1(H) 27.0 - 32.0 pcg LAB HEMETOLOGY METHOD 04/13/2025 11:[address] [facility] MCHC 30.4(L) 32.0 - 37.0 g/dL LAB HEMETOLOGY METHOD 04/13/2025 11:[address] [facility] RDW 17.5(H) 11.0 - 15.0 % LAB HEMETOLOGY METHOD 04/13/2025 11:[address] [facility] Platelets 611(H) 130 - 400 K/mcL LAB HEMETOLOGY METHOD 04/13/2025 11:[address] [facility] MPV 11.2(H) 7.0 - 11.0 FL LAB HEMETOLOGY METHOD 04/13/2025 11:[address] [facility] NRBC 0.0 <1.0 % LAB HEMETOLOGY METHOD 04/13/2025 11:[address] [facility] NRBC Absolute 0.00 <0.10 K/mcL LAB HEMETOLOGY METHOD 04/13/2025 11:[address] [facility] Neutrophils Relative 46.1 % LAB HEMETOLOGY METHOD 04/13/2025 11:[address] [facility] Lymphocytes Relative 45.5 % LAB HEMETOLOGY METHOD 04/13/2025 11:[address] [facility] Monocytes Relative 7.2 % LAB HEMETOLOGY METHOD 04/13/2025 11:[address] [facility] Eosinophils Relative 0.8 % LAB HEMETOLOGY METHOD 04/13/2025 11:[address] [facility] Basophils Relative 0.2 % LAB HEMETOLOGY METHOD 04/13/2025 11:[address] [facility] Immature Granulocytes Relative 0.2 % LAB HEMETOLOGY METHOD 04/13/2025 11:[address] [facility] Neutrophils Absolute 2.31 1.50 - 7.00 K/mcL LAB HEMETOLOGY METHOD 04/13/2025 11:[address] [facility] Lymphocytes Absolute 2.28 1.00 - 5.00 K/mcL LAB HEMETOLOGY METHOD 04/13/2025 11:[address] [facility] Monocytes Absolute 0.36 0.20 - 1.00 K/mcL LAB HEMETOLOGY METHOD 04/13/2025 11:[address] [facility] Eosinophils Absolute 0.04 0.00 - 0.50 K/mcL LAB HEMETOLOGY METHOD 04/13/2025 11:41 AM EDT [facility] Basophils Absolute 0.01 0.00 - 0.20 K/[facility] LAB HEMETOLOGY METHOD 04/13/2025 11:41 AM EDT [facility] Immature Granulocytes Absolute 0.01 0.00 - 0.03 K/[facility] LAB HEMETOLOGY METHOD 04/13/2025 11:41 AM EDT [facility] Blood Venous blood specimen / Unknown Venipuncture / Unknown 04/13/2025 8:30 AM EDT 04/13/2025 11:30 AM EDT Sailaja Lynn DO LAB BLOOD ORDERABLES Final Result [facility] [address] [place] [address], * (ABNORMAL) Comprehensive metabolic panel (04/13/2025 8:30 AM EDT) Sodium 141 133 - 145 mmol/L LAB CHEMISTRY METHOD 04/13/2025 2:[address] [facility] Potassium 5.0 3.5 - 5.5 mmol/L LAB CHEMISTRY METHOD 04/13/2025 2:[address] [facility] Chloride 108 96 - 110 mmol/L LAB CHEMISTRY METHOD 04/13/2025 2:[address] [facility] CO2 24 21 - 32 mmol/L LAB CHEMISTRY METHOD 04/13/2025 2:[address] [facility] Anion Gap 9 3 - 11 LAB CHEMISTRY METHOD 04/13/2025 2:[address] [facility] Glucose 106(H) 70 - 100 mg/dL LAB CHEMISTRY METHOD 04/13/2025 2:[address] [facility] BUN 19 5 - 25 mg/dL LAB CHEMISTRY METHOD 04/13/2025 2:[address] [facility] Creatinine 0.73 0.50 - 1.10 mg/dL LAB CHEMISTRY METHOD 04/13/2025 2:[address] [facility] eGFR 83 >=60 mL/min/1. 73m2 LAB CHEMISTRY METHOD 04/13/2025 2:[address] [facility] Comment:Calculation based on the Chronic Kidney Disease Epidemiology Collaboration (CKD-EPI) equation refit without adjustment for race. BUN/Creatinine Ratio 26.0 LAB CHEMISTRY METHOD 04/13/2025 2:[address] [facility] Calcium 9.8 8.5 - 10.5 mg/dL LAB CHEMISTRY METHOD 04/13/2025 2:[address] [facility] AST (SGOT) 14 10 - 42 unit/L LAB CHEMISTRY METHOD 04/13/2025 2:[address] [facility] ALT (SGPT) 32 10 - 60 unit/L LAB CHEMISTRY METHOD 04/13/2025 2:[address] [facility] Alkaline Phosphatase 80 42 - 121 unit/L LAB CHEMISTRY METHOD 04/13/2025 2:[address] [facility] Total Protein 7.0 6.0 - 8.0 g/dL LAB CHEMISTRY METHOD 04/13/2025 2:[address] [facility] Albumin 4.0 3.2 - 5.0 g/dL LAB CHEMISTRY METHOD 04/13/2025 2:[address] [facility] Total Bilirubin 0.6 0.0 - 1.4 mg/dL LAB CHEMISTRY METHOD 04/13/2025 2:[address] [facility] Blood Venous blood specimen / Unknown Venipuncture / Unknown 04/13/2025 8:30 AM EDT 04/13/2025 11:30 AM EDT Sailaja Lynn DO LAB BLOOD ORDERABLES Final Result [facility] [address] [place] [address], from Last 3 Months Insurance MEDICARE [facility] Care Teams Police Captain Relationship Specialty Start Date End Date Clifton Calderon MD [address] [facility] [employer] [address] [place] [address] PCP - General Internal Medicine 05/08/24
--- OUTSIDE RECORDS SUMMARY | 2025-04-27 13:24 | XMS_ITS | Clinical Summary ---
Author Organization [facility] Address [address] [place] [address] Care Team Providers Care Painting Contractor Name Role Phone Dwight Bowser MD Primary Care Provider [phone] Allergies No known active allergies Medications Medication [...] months with molecular testing. Testing for Surya [id number] and BCR-ABL had both been reported negative [...] 89 04/19/2024 9:02 AM EDT Temperature 36.7 C (98 F) 04/19/2024 9:02 AM EDT Respiratory Rate - [...] 1-dose 75+ series) 2019 Influenza Vaccine (#1) 2025 Hepatitis B Vaccines Aged Out No long er eligible based on patient's age to complete this topic RSV Ped < 20 months Aged Out No longe r eligible based on patient's age to complete this topic Care Teams Painting Contractor Relationship Specialty Start Date End Date Dwight Bowser MD [address] [place] [address] [address] JU[place] Hernandez [id number] PCP - General Team Leader Surgery 10/28/22
--- OUTSIDE RECORDS SUMMARY | 2025-04-27 13:24 | XMS_ITS | Encounter Summary ---
Author Organization [facility] Address [address] [place] [address] Care Team Providers Care Coating Machine Helper Name Role Phone Clifton Calderon MD Primary Care Provider [phone] Encounter Details Date Type Department Care Team (Late st Contact Info) Description 04/18/2025 Telephone [facility] Hematology Oncology [address] [place] [phone] Sailaja Lynn, DO [address] [place] [address] Social History Tobacco Use Types Packs/Day Years Used Date Smoking Tobacco: Never Smokeless Tobacco: Never Alcohol Use Standard Drinks/Week Comments Yes 7 (1 standard drink = 0.6 oz pur e alcohol) Comments Unknown Sex and Gender Information Value Date Recorded Sex Assigned at Not on file Legal Sex Female 2:01 AM EST Gender Identity Not on file Sexual Orientation Not on file documented as of this encounter Progress Notes * Sarika Moran MA - 04/18/2025 3:23 PM EDT Notified pt of lab results. Plt count has decreased to 611. Pt will continue the hydrea as she has been. Told pt I will call her tomorrow when MD is back in office if dosage needs to change. Hgb is slightly lower than previous but will monitor. * Valentina Fenton - 04/18/2025 3:09 PM EDT Patient calling for blood test results, please call her at [phone] documented in this encounter Plan of Treatment Upcoming Encounters Date Type Department Care Team (Late st Contact Info) Description 05/09/2025 9:15 AM EDT Office Visit [facility] Hematology Oncology [address] [place] [phone] Sailaja Lynn, [address] [place] [address] documented as of this encounter Visit Diagnoses Not on filedocumented in this encounter Care Teams Coating Machine Helper Relationship Specialty Start Date End Date Clifton Calderon MD [address] [facility] [address] [place] [address] PCP - General Internal Medicine 05/08/24 documented as of this encounter
[2025-04-27 13:58] LABS: Hematocrit 35.0 % (37.0-47.0); Hemoglobin 11.1 g/dl (12.0-16.0); Imm Gran Abs Auto 0.03 X10*3/uL (0.00-0.03); Imm Gran Pct Auto 0.5 % (0.0-0.4); Lymphocytes Absolute Auto 2.3 X10*3/uL (1.2-4.9); Mean Corpuscular HGB Conc 31.7 g/dl (31.0-35.0); Mean Corpuscular Hemoglobin 34.6 pg (27.0-33.0); Mean Corpuscular Volume 109.0 fL (80.0-98.0); NRBC Abs Auto 0.000 X10*3/uL (0.0-0.012); NRBC Pct Auto 0.0 /100WBC (0.0-0.2); Platelet Count 611 X10*3/uL (160-400); Red Blood Count 3.21 X10*6/uL (4.20-5.50); White Blood Count 5.9 X10*3/uL (4.8-10.8)
[2025-04-27 14:17] LABS: Anion Gap 11 (12-20); Blood Urea Nitrogen 20 mg/dL (9-16); Calcium 10.0 mg/dL (8.4-10.2); Carbon Dioxide 26 mmol/L (22-29); Chloride 109 mmol/L (96-108); Estimated Glomerular Filt Rate > 60; Potassium 4.6 mmol/L (3.3-5.1); Sodium 141 mmol/L (135-145)
== END 2025-04-27 10:51 | disposition home or self-care (01) ==
LOC: HO.10HDL 10:50
PROVIDERS: Visit Provider Physician Assistant
DX: M85.80 Other specified disorders of bone density and structure, unspecified site (principal); D75.839 Thrombocytosis, unspecified; E55.9 Vitamin D deficiency, unspecified; I10 Essential (primary) hypertension
CPT/HCPCS: 36415; 80048; 82306; 85025

== ENCOUNTER 2025-05-08 08:12 | Outpatient (AMB) | payer MEDICARE, SELFPAY ==
--- NOTE | 2025-05-08 07:43 | MHC.PC.OV ---
Vital Signs 05/08/25 08:20 Height 5 ft 0.39 in Weight 67.585 kg BMI 28.7 BP 168/76 H Blood Pressure Location Lt brachial Position Sitting Pulse 98 Pulse Source Pulse Oximeter Temp 98.1 F Temp Source Temporal Artery Scan Pulse Oximetry (%) 98 Oxygen Delivery Method Room Air Intake Visit Reasons: est pt follow/DR ABERNATHY PT Assistant Store Manager Operations Required: No Accompanied by: Self / Same As Patient Allergies No Known Allergies Allergy (Verified 05/08/25 07:44) Tobacco use date assessed: 05/08/25 Fall risk assessment: No Falls in past year Last assessed Fall Risk: 05/08/25 Dental Screening Dental Screen Date: 05/08/25 Did you have a dental visit in the last 12 months?: Yes Did you have a dental problem in the last 6 months where you did not have access to dental care?: No Was dental information given to patient?: Patient has dentist HPI HPI Comments History of Present Illness Details 79-year-old female with history of hypertension, osteopenia, thrombocytosis presents to the office today for management of chronic conditions as well as to establish care. Hypertension-Initial BP 168/76, recheck Feels this is related to new office in provider. Compliant with valsartan 80 mg daily and amlodipine 10 mg daily. Thrombocytosis-following with Dr. Regan at [place]. On hydroxyurea, recently increased to twice weekly 2 tabs, otherwise once daily. Last platelet count 446 Osteopenia-last DEXA scan 03/2024 with FRAX 16%. On vitamin-D Concerns: Gassy Ache across bilateral mid back. New bra, possibly confining. Also was sitting top of bleachers with fencing behind her leaning on this. No rash Health maintenance: Continues with annual mammograms. Last mammo 03/2025 at [facility]. No personal history of breast cancer or abnormal mammogram but does desire to continue with scans Last DEXA scan 03/2024 at [facility] ROS: see hpi EXAM: Constitutional - Awake and Alert, No apparent distress Eyes - PERRL Cardiovascular - S1S2, RRR, No edema Respiratory - Normal lung expansion, Normal respiratory effort, No respiratory distress, CTA bilaterally Extremities - no calf tenderness bilaterally, no swelling MSK- no midline tenderness to palpation. No paraspinal tenderness to palpation. Full flexion and extension. Skin - Warm/Dry. No rash Neurological - Alert & oriented x3 Psychological - Appropriate affect PFSH Medical History (Updated 05/08/25 @ 08:56 by MAGNO Bear) Thrombocytosis Vitamin D deficiency Osteopenia Hypertension Surgical History (Updated 12/25/24 @ 10:26 by MAGNO Bear) Status post total hip replacement, right S/P cataract surgery Social History Housing: House Patient Tobacco Use Status: Never used Tobacco e-Cigarette/Vaping Use: Never Used service: No Current occupational status: retired Questionnaire Thrive Questionnaire Date Thrive assessed: 12/25/24 AUDIT C Alcohol Use Questionnaire (AUDIT-C) 1. How often do you have a drink containing alcohol?: 4 or more times a week 2. How many drinks containing alcohol do you have on a typical day when you are drinking?: 1 or 2 3. How often do you have six or more drinks on one occasion?: Never Total Score: 4 LALIT-7 AMB Questionnaire LALIT-7 Date LALIT - 7 assessed: 12/25/24 Source: Developed by Drs. Toribio Marti, Kortney Oglesby, Julio Cesar Mcdonald and colleagues, with an educational mary from [employer]. Physical exam (Primary Care) Vital Signs: Last Vital Signs Temp 98.1 F 05/08/25 08:20 Pulse 98 05/08/25 08:20 BP 168/76 H 05/08/25 08:20 Pulse Ox 98 05/08/25 08:20 Oxygen Delivery Method Room Air 05/08/25 08:20 BMI result Body Mass Index 28.7 Tobacco/Smoking Status: Tobacco use Status Tobacco use date assessed 05/08/25 05/08/25 07:44 Patient Tobacco Use Status Never used Tobacco 05/08/25 08:23 e-Cigarette/Vaping Use Never Used 05/08/25 08:23 Thrive Assessment: Date of Thrive Assessment Date Thrive assessed 12/25/24 05/08/25 07:44 Coding Level of Care Code Est Pt Level 4 (01089) Complex EM visit Add On G2211 Diagnoses Hypertension I10 Osteopenia M85.80 Thrombocytosis D75.839 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 She can continue with current therapies. Advised patient to purchase a blood pressure cuff. Monitor blood pressures at same time daily about 2 hours after taking her medication and reach out to the office with readings. (2) Osteopenia: Code(s): M85.80 - Other specified disorders of bone density and structure, unspecified site Category: Medical Plan: DEXA scan up-to-date. FRAX 16%. Repeat every 2 years. Continue with weight-bearing exercise as well as calcium and vitamin-D supplementation. Check vitamin-D level (3) Thrombocytosis: Code(s): D75.839 - Thrombocytosis, unspecified Category: Medical Plan: Slight increase in platelet count but stable overall. Continue following with Hematology at [place]. Continue hydroxyurea as prescribed. We will closely monitor platelet counts. (4) Gas bloat syndrome: Code(s): K92.89 - Other specified diseases of the digestive system Category: Medical Plan: Recommend simethicone. Recommend avoiding gas-forming foods, information given Plan Follow-up in the office in 6 months, labs to be completed prior to visit Orders: Orders Basic Metabolic Panel 6 Months E55.9 - Vitamin D deficiency, unspecified, I10 - Essential (primary) hypertension Lipid Panel 6 Months E55.9 - Vitamin D deficiency, unspecified, I10 - Essential (primary) hypertension Vitamin D 25-OH Total 6 Months E55.9 - Vitamin D deficiency, unspecified, M85.80 - Other specified disorders of bone density and structure, unspecified site Complete Blood Count Auto Diff 6 Months D75.839 - Thrombocytosis, unspecified Patient Instructions: Purchase BP cuff. Goal is less than 140/90. If elevated above this, please reach out to the office. Gas-ex
[2025-05-08 08:20] VITALS: BP 168/76; PULSE 98; TEMP 36.7; O2SAT 98; BMI 28.7
--- OUTSIDE RECORDS SUMMARY | 2025-05-08 08:33 | XMS_ITS | Clinical Summary ---
Author Organization [facility] Address [address] [place] [address] Care Team Providers Care Code Enforcement Supervisor Name Role Phone Dwight Bowser MD Primary Care Provider [phone] Allergies No known active allergies Medications Medication [...] months with molecular testing. Testing for Surya [id number] and BCR-ABL had both been reported negative [...] age to complete this topic Care Teams Code Enforcement Supervisor Relationship Specialty Start Date End Date Dwight Bowser MD [address] [place] [address] Dr [address] JUAN Hernandez [id number] PCP - General General Manager Food 10/28/22
--- OUTSIDE RECORDS SUMMARY | 2025-05-08 08:33 | XMS_ITS | Clinical Summary ---
Author Organization [facility] Address [address] [place] [address] Phone Care Team Providers Care Distribution Spec Name Role Phone Clifton Calderon MD Primary Care Provider [phone] Allergies No known active allergies Medications amLODIPine [...] Type Department Care Team Description 04/18/2025 Telephone [facility] Hematology Oncology [address] [place] [address] Sailaja Lynn DO from Last 3 Months Surgical History Surgery Date Site/Laterality Comments COLONOSCOPY 02/19/2014 PROCEDURE:COLONOSCOPY PARTIAL HIP ARTHROPLASTY PROCEDURE:PARTIAL HIP ARTHROPLASTY WISDOM TOOTH EXTRACTION PROCEDURE:WISDOM TOOTH EXTRACTION Medical History Medical History Date Comments Dermatitis DX:Dermatitis Eczema DX:Eczema HTN (hypertension) DX:HTN (hyper tension) Thrombocythemia, essential ( [facility]/HCC V24, CMS/HCC V28) DX:Thrombocythemia, essentia l (HCC) Thrombocytosis DX:Thrombocytosi [...] Description 05/09/2025 9:15 AM EDT Office Visit [facility] Hematology Oncology [address] [place] [phone] Sailaja Lynn, [address] [place] [address] Health Maintenance Due Date Last Done Comments [...] Routine 04/13/2025 8:30 AM EDT Essential thrombocytosis (CMS/HCC V24, CMS/HCC V28) COMPREHENSIVE METABOLIC PANEL Routine 04/13/2025 8:30 AM EDT Essential thrombocytosis (CMS/HCC V24, CMS/HCC V28) CBC AND DIFFERENTIAL Routine 04/13/2025 8:30 AM EDT Essential thrombocytosis ([facility]/HCC V24, CMS/HCC V28) from Last 3 Months Results * (ABNORMAL) CBC auto differential (04/13/2025 8:30 AM EDT) [facility] WBC 5.0 4.8 - 10.8 K/mcL LAB HEMETOLOGY METHOD 04/13/2025 11:41 AM [facility] RBC 3.10(L) 3.80 - 4.80 M/mcL LAB HEMETOLOGY METHOD 04/13/2025 11:41 AM [facility] Hemoglobin 10.6(L) 11.5 - 16.0 g/dL LAB HEMETOLOGY METHOD 04/13/2025 11:41 AM [facility] Hematocrit 34.9(L) 35.0 - 47.0 % LAB HEMETOLOGY METHOD 04/13/2025 11:41 AM [facility] MCV 112.2(H) 79.0 - 98.0 FL LAB HEMETOLOGY METHOD 04/13/2025 11:41 AM [facility] MCH 34.1(H) 27.0 - 32.0 pcg LAB HEMETOLOGY METHOD 04/13/2025 11:41 AM [facility] MCHC 30.4(L) 32.0 - 37.0 g/dL LAB HEMETOLOGY METHOD 04/13/2025 11:41 AM [facility] RDW 17.5(H) 11.0 - 15.0 % LAB HEMETOLOGY METHOD 04/13/2025 11:41 AM [facility] Platelets 611(H) 130 - 400 K/mcL LAB HEMETOLOGY METHOD 04/13/2025 11:41 AM [facility] MPV 11.2(H) 7.0 - 11.0 FL LAB HEMETOLOGY METHOD 04/13/2025 11:41 AM [facility] NRBC 0.0 <1.0 % LAB HEMETOLOGY METHOD 04/13/2025 11:41 AM [facility] NRBC Absolute 0.00 <0.10 K/mcL LAB HEMETOLOGY METHOD 04/13/2025 11:41 AM [facility] Neutrophils Relative 46.1 % LAB HEMETOLOGY METHOD 04/13/2025 11:41 AM [facility] Lymphocytes Relative 45.5 % LAB HEMETOLOGY METHOD 04/13/2025 11:41 AM [facility] Monocytes Relative 7.2 % LAB HEMETOLOGY METHOD 04/13/2025 11:41 AM [facility] Eosinophils Relative 0.8 % LAB HEMETOLOGY METHOD 04/13/2025 11:41 AM [facility] Basophils Relative 0.2 % LAB HEMETOLOGY METHOD 04/13/2025 11:41 AM [facility] Immature Granulocytes Relative 0.2 % LAB HEMETOLOGY METHOD 04/13/2025 11:41 AM [facility] Neutrophils Absolute 2.31 1.50 - 7.00 K/mcL LAB HEMETOLOGY METHOD 04/13/2025 11:41 AM [facility] Lymphocytes Absolute 2.28 1.00 - 5.00 K/mcL LAB HEMETOLOGY METHOD 04/13/2025 11:41 AM [facility] Monocytes Absolute 0.36 0.20 - 1.00 K/mcL LAB HEMETOLOGY METHOD 04/13/2025 11:41 AM [facility] Eosinophils Absolute 0.04 0.00 - 0.50 K/mcL LAB HEMETOLOGY METHOD 04/13/2025 11:41 AM [facility] Basophils Absolute 0.01 0.00 - 0.20 K/mcL LAB HEMETOLOGY METHOD 04/13/2025 11:41 AM EDT [facility] Immature Granulocytes Absolute 0.01 0.00 - 0.03 K/[facility] LAB HEMETOLOGY METHOD 04/13/2025 11:41 AM EDT [facility] Blood Venous blood specimen / Unknown Venipuncture / Unknown 04/13/2025 8:30 AM EDT 04/13/2025 11:30 AM EDT us Sailaja Lynn DO LAB BLOOD ORDERABLES Final Result [facility] [address] [place] [address], [place] [phone] * (ABNORMAL) Comprehensive metabolic panel (04/13/2025 8:30 AM EDT) Sodium 141 133 - 145 mmol/L LAB CHEMISTRY METHOD 04/13/2025 2:36 PM [facility] Potassium 5.0 3.5 - 5.5 mmol/L LAB CHEMISTRY METHOD 04/13/2025 2:36 PM [facility] Chloride 108 96 - 110 mmol/L LAB CHEMISTRY METHOD 04/13/2025 2:36 PM [facility] CO2 24 21 - 32 mmol/L LAB CHEMISTRY METHOD 04/13/2025 2:36 PM [facility] Anion Gap 9 3 - 11 LAB CHEMISTRY METHOD 04/13/2025 2:36 PM [facility] Glucose 106(H) 70 - 100 mg/dL LAB CHEMISTRY METHOD 04/13/2025 2:36 PM [facility] BUN 19 5 - 25 mg/dL LAB CHEMISTRY METHOD 04/13/2025 2:36 PM [facility] Creatinine 0.73 0.50 - 1.10 mg/dL LAB CHEMISTRY METHOD 04/13/2025 2:36 PM EDT [facility] eGFR 83 >=60 mL/min/1. 73m2 LAB CHEMISTRY METHOD 04/13/2025 2:36 PM T [facility] Comment:Calculation based on the Chronic Kidney Disease Epidemiology Collaboration (CKD-EPI) equation refit without adjustment for race. BUN/Creatinine Ratio 26.0 LAB CHEMISTRY METHOD 04/13/2025 2:36 PM EDT [facility] Calcium 9.8 8.5 - 10.5 mg/dL LAB CHEMISTRY METHOD 04/13/2025 2:36 PM [facility] AST (SGOT) 14 10 - 42 unit/L LAB CHEMISTRY METHOD 04/13/2025 2:36 PM [facility] ALT (SGPT) 32 10 - 60 unit/L LAB CHEMISTRY METHOD 04/13/2025 2:36 PM T [facility] Alkaline Phosphatase 80 42 - 121 unit/L LAB CHEMISTRY METHOD 04/13/2025 2:36 PM [facility] Total Protein 7.0 6.0 - 8.0 g/dL LAB CHEMISTRY METHOD 04/13/2025 2:36 PM [facility] Albumin 4.0 3.2 - 5.0 g/dL LAB CHEMISTRY METHOD 04/13/2025 2:36 PM [facility] Total Bilirubin 0.6 0.0 - 1.4 mg/dL LAB CHEMISTRY METHOD 04/13/2025 2:36 PM [facility] Blood Venous blood specimen / Unknown Venipuncture / Unknown 04/13/2025 8:30 AM EDT 04/13/2025 11:30 AM EDT us Sailaja Lynn DO LAB BLOOD ORDERABLES Final Result [facility] [address] [place] [address], from Last 3 Months Insurance MEDICARE [facility] Care Teams Distribution Spec Relationship Specialty Start Date End Date Clifton Calderon MD [address] [address] PCP - General Internal Medicine 05/08/24
== END 2025-05-08 08:56 | disposition home or self-care (01) ==
LOC: HO.HMCHD 08:12
PROVIDERS: PCP Internal Medicine; Visit Provider Physician Assistant
DX: I10 Essential (primary) hypertension (principal); M85.80 Other specified disorders of bone density and structure, unspecified site; D75.839 Thrombocytosis, unspecified; K92.89 Other specified diseases of the digestive system

== ENCOUNTER → 2025-05-08 08:12 | Outpatient (BNVA) | payer MEDICARE, SELFPAY | PROVIDERS: PCP Internal Medicine; Visit Provider Physician Assistant | DX: Z76.89 Persons encountering health services in other specified circumstances (principal); I10 Essential (primary) hypertension; M85.80 Other specified disorders of bone density and structure, unspecified site; D75.839 Thrombocytosis, unspecified; K92.89 Other specified diseases of the digestive system; Z79.899 Other long term (current) drug therapy | CPT/HCPCS: 99212 ==